=== PATIENT | female | born 1950 | race Caucasian/White ===

== ENCOUNTER 2023-10-19 09:13 | Outpatient (REF) | payer SELFPAY ==
--- NOTE | 2023-10-19 09:54 | MHC.AU.HA3 ---
Hearing Instrument Follow-Up- Binaural Date of Visit: 10/19/23 Right Ear: Florian, Model, Color, Serial Number: Nathan Neara 2 Pro mini BTE [id number] Roll On Man Repair Warranty: 12/19/17 Roll On Man Loss and Damage Warranty: 12/19/17 [facility] Service Plan: exp Battery Size: 312 Continuous Improvement Analyst/Slim Tube: 1 Earmold/Dome/CShell/SlimTip:8mm closed Type of Wax Guard: Dispensed By: [facility] Date of Fittin12/17/14 Left Ear: Make, Model, Color, Serial Number: Nathan Nera 2 Pro mini [id number] [id number] Roll On Man Repair Warranty: 12/19/17 Roll On Man Loss and Damage Warranty: 12/19/17 [facility] Service Plan: exp Battery Size: 312 Continuous Improvement Analyst/Slim Tube: 1 Earmold/Dome/CShell/SlimTip: 8mm closed Type of Wax Guard: Dispensed By: [facility] Date of Fittin12/17/14 Follow-Up Summary: Magalie reports the tail has broken off her right slim tube. Last here 10/2016. Reports hearing aids are working well otherwise. Cleaned aids, replaced slim tubes, tails, and domes. Listening check positive. Recommendations: Recommendations: Hearing instrument follow-up or maintenance as needed. Diagnosis Code(s): Primary Diagnosis: H90.3 Bilateral Sensorineural Hearing Loss Signature: Provider: Ara Das, CCC-A
== END 2023-10-19 09:14 | disposition home or self-care (01) ==
LOC: HO.HAP 09:13
PROVIDERS: Visit Provider Internal Medicine
DX: Z46.1 Encounter for fitting and adjustment of hearing aid (principal); H90.3 Sensorineural hearing loss, bilateral
CPT/HCPCS: 92593

== ENCOUNTER 2024-01-31 08:45 | Outpatient (REF) | payer MEDICARE, OTHER, SELFPAY | END 2024-01-31 08:46 | disposition home or self-care (01) | LOC: HO.SH 08:45 | PROVIDERS: PCP Internal Medicine; Visit Provider Internal Medicine | DX: Z01.118 Encounter for examination of ears and hearing with other abnormal findings (principal); H90.3 Sensorineural hearing loss, bilateral | CPT/HCPCS: 92557 ==

== ENCOUNTER 2024-05-01 13:46 | Outpatient (REF) | payer SELFPAY ==
--- NOTE | 2024-05-01 14:29 | MHC.AU.HA3 ---
Hearing Instrument Follow-Up- Binaural Date of Visit: 05/01/24 Right Ear: Florian, , Color, Serial Number: Arben Mckeon L 70 R amy bolanos [id number] Half Sole Fitter Repair Warranty: 04/07/2027 Half Sole Fitter Loss and Damage Warranty: 04/07/2027 [facility] Service Plan: 03/27/25 Battery Size: Rechargeable [employer] Naval/Slim Tube: 1 Earmold/Dome/CShell/SlimTip:med vented Type of Wax Guard: Cerustop Dispensed By: [facility] Date of Fittin03/27/24 Left Ear: Model Florian, Color, Serial Number: Arben Mckeon L 70 R amy bolanos [id number] Half Sole Fitter Repair Warranty: 04/07/2027 Half Sole Fitter Loss and Damage Warranty: 04/07/2027 [facility] Service Plan: 03/27/25 Battery Size: Rechargeable [employer] Naval/Slim Tube: 1 Earmold/Dome/CShell/SlimTip: med vented Type of Wax Guard: Cerustop Dispensed By: [facility] Date of Fittin03/27/24 Follow-Up Summary: Seen for follow up. Reports good satisfaction with the new hearing aids. Reports hearing well, hearing clients well. No concerns, no adjustments needed at this time. Reminded of service plan through 03/27/25. Recommendations: Recommendations: Hearing instrument follow-up or maintenance as needed. Diagnosis Code(s): Primary Diagnosis: H90.3 Bilateral Sensorineural Hearing Loss Signature: Provider: Ara Das, [facility]
--- OUTSIDE RECORDS SUMMARY | 2024-05-01 15:15 | XMS_ITS | Continuity of Care Document ---
Author Organization [facility] Address [address] [place] [address] [address] [place], [place] Phone [phone] Care Team Providers Care Fountain Dispenser Name Role Phone SUE VIDAL M.D. Care Team Information Rec eiver Unavailable Social History Type Date Description Comments Sex Unknown
--- OUTSIDE RECORDS SUMMARY | 2024-05-01 15:15 | XMS_ITS | Continuity of Care Document ---
Author Name [facility] Organization [facility] Care Team Providers Care Food Services Manager Name Role Phone [facility] Unavailable Unavailable Medications Combined list of outpatient medications from Department of Defense and Veterans Affairs facilities.Medications provided include 1) outpatient medications from the last 15 months, and 2) patient-reported medications. Medication Details Route Status Patient Instructions Prescription Expires Prescription Number Last Dispense Date Ordering Provider Order Date Order Qty Source AMOX TR-POTASSIU M CLAVULANATE (AMOXICILLI N/POTASSIUM CLAV), 875-125 MG, TABLET, ORAL, [facility], 20 ea. BOTTLE Active [id number] 2023 20 Pharmac y Data Transac tion Service Facilit y AMOXICILLIN (amoxicilli n), 875 MG, TABLET, ORAL, [facility]/ IKMA, 100 ea. BOTTLE Cancele d [id number] : 2023 0 Pharmac y Data Transac tion Service Facilit y AZITHROMYCI N (azithromyc in), 250 MG, TABLET, ORAL, SANDOZ, 6 ea. BLIST PACK Active [id number] 4 2023 6 Pharmac y Data Transac tion Service Facilit y COMIRNATY (COVID vac 2022- (12 yr and up) XBB.1.5 (raxtozinam vimal)/PF), 30 MCG/0.3, SYRINGE, INTRAMUSC, PFIZER US PHARM, .3 ml SYRINGE Active [id number] 4 2023 0.3 Pharmac y Data Transac tion Service Facilit y ENALAPRIL MALEATE (enalapril maleate), 20 MG, TABLET, ORAL, [facility], 1000 ea. BOTTLE Active [id number] 4 2023 90 Pharmac y Data Transac tion Service Facilit y ENALAPRIL MALEATE (ENALAPRIL MALEATE), 20MG, TABLET, ORAL, [employer] [place], 1000 ea. BOTTLE Cancele d [id number] : 2022 0 Pharmac y Data Transac tion Service Facilit y ENALAPRIL MALEATE (ENALAPRIL MALEATE), 20MG, TABLET, ORAL, [facility] [place], 1000 ea. BOTTLE Active [id number] 3 2022 90 Pharmac y Data Transac tion Service Facilit y ESTRACE (ESTRADIOL) , 0.01%, CREAM/APPL, VAGINAL, WC PROF PRODS, 42.5 g TUBE Active [id number] 05/31/19 2 4 2023 42.5 Pharmac y Data Transac tion Service Facilit y HUMALOG (INSULIN LISPRO), 100 U/ML, INSULN PEN, SUB-Q, [employer] 3 ml SYRINGE Active [id number] 4 2023 15 Pharmac y Data Transac tion Service Facilit y JULIUS 2ND GEN PEN NEEDLE (pen needle, diabetic), 32GX 5/32 , DIS NEEDLE, MISCELL, BD DIABETES/EM B, 100 ea. BOX Active [id number] 4 2023 300 Pharmac y Data Transac tion Service Facilit y JULIUS 2ND GEN PEN NEEDLE (pen needle, diabetic), 32GX 5/32 , DIS NEEDLE, MISCELL, BD DIABETES/EM B, 100 ea. BOX Active [id number] 4 2023 200 Pharmac y Data Transac tion Service Facilit y JULIUS 2ND GEN PEN NEEDLE (pen needle, diabetic), 32GX 5/32 , DIS NEEDLE, MISCELL, BD DIABETES/EM B, 100 ea. BOX Cancele d [id number] : 2023 0 Pharmac y Data Transac tion Service Facilit y JULIUS 2ND GEN PEN NEEDLE (pen needle, diabetic), 32GX 5/32 , DIS NEEDLE, MISCELL, BD DIABETES/EM B, 100 ea. BOX Active [id number] 4 2023 100 Pharmac y Data Transac tion Service Facilit y JULIUS 2ND GEN PEN NEEDLE (pen needle, diabetic), 32GX 5/32 , DIS NEEDLE, MISCELL, BD DIABETES/EM B, 100 ea. BOX Active [id number] 4 2023 200 Pharmac y Data Transac tion Service Facilit y JULIUS 2ND GEN PEN NEEDLE (pen needle, diabetic), 32GX 5/32 , DIS NEEDLE, MISCELL, BD DIABETES/EM B, 100 ea. BOX Cancele d [id number] : 2023 0 Pharmac y Data Transac tion Service Facilit y ROSUVASTATI N CALCIUM (rosuvastat in calcium), 20 MG, TABLET, ORAL, [employer] 90 ea. BOTTLE Cancele d [id number] : 2023 0 Pharmac y Data Transac tion Service Facilit y Immunizations Combined list of available immunizations from the Department of Defense and Veterans Affairs facilities. Immunization Series Date Given Administered By Site Reaction Lot Number CVX Code Drug Superintendent Institution Status Comments Source COVID-19, mRNA, LNP-S, PF, 30 mcg/0.3 mL dose, cordell-sucrose 2021 [place] (PFR) Not Given COVID-19, mRNA, LNP-S, PF, 30 mcg/0.3 mL dose, cordell-sucr ose DoD zoster recombinant 2018 Lui MAC () Not Given zoster recombina nt DoD zoster recombinant 2017 Lui MAC () Not Given zoster recombina nt DoD influenza, trivalent, adjuvanted 2016 Lui MAC () Not Given influenza , trivalent , adjuvante d DoD Influenza, high dose seasonal 2015 JONATHAN CHARLES () Not Given Influenza , high dose seasonal DoD zoster live 2014 JONATHAN CHARLES () Not Given zoster live DoD zoster live 2014 SVITLANA BAKER () Not Given zoster live DoD zoster live 2014 SVITLANA BAKER () Not Given zoster live DoD Influenza, seasonal, injectable, preservative free 2013 SVITLANA BAKER () Not Given Influenza , seasonal, injectabl e, preservat edwar free DoD Hep B, adult 2010 MANGO GALLEGOS [place] () Not Given Hep B, adult DoD Social History Combined list of available smoking, tobacco, and other social history from Department of Defense and Veterans Affairs facilities. Social History Type Response Date Comment Sourc e This section is an empty social history section. DoD
== END 2024-05-01 13:47 | disposition home or self-care (01) ==
LOC: HO.HAP 13:46
PROVIDERS: PCP Internal Medicine; Visit Provider Internal Medicine
DX: Z13.89 Encounter for screening for other disorder (principal)